=== PATIENT | female | born 1975 | race Caucasian/White ===

== ENCOUNTER 2017-08-13 11:06 | Observation (INO) | payer OTHER ==
[~2017-08-13] VITALS: Ht 160 cm; Wt 89.6 kg
[~2017-08-13 11:06] MED LIST: NAPROXEN500 MG PO; PERCOCET 325 MG1 TA2 PO
--- NOTE | 2017-08-13 11:11 | ED CARDIAC/CP/PALPITATIONS ---
History of Present Illness General Chief Complaint: Chest Pain Stated Complaint: CHEST PAIN Source: patient Exam Limitations: poor historian Vital Signs & Intake/Output Vital Signs & Intake/Output Vital Signs Date Time Temp Pulse Resp B/P B/P Pulse O2 O2 Flow FiO2 Mean Ox Delivery Rate 08/14 0800 Room Air 08/14 0711 98.3 66 20 118/78 96 Room Air 08/13 2220 98.4 69 20 124/82 97 Room Air 08/13 2045 98.4 69 20 124/82 97 Room Air 08/13 1943 84 16 120/77 100 Room Air 08/13 1813 97.9 65 20 124/73 96 08/13 1549 97.8 08/13 1353 78 18 128/74 99 Room Air 08/13 1208 62 18 169/101 99 Room Air 08/13 1115 66 18 159/105 99 Room Air ED Intake and Output 08/14 0000 08/13 1200 Intake Total 230 0 Output Total Balance 230 0 Intake, Oral 230 0 Patient 188 lb 188 lb Weight Weight Reported by Patient Measurement Method Allergies Coded Allergies: hydromorphone (From DILAUDID) (Mild, ITCHY RASH 08/13/17) Reconcile Medications Doxycycline Hyclate 20 MG TABLET 1 TAB PO BID ANTIBIOTIC, INFECTION (Reported ) Escitalopram Oxalate 20 MG TABLET 1 TAB PO DAILY MENTAL HEALTH (Reported) Triage Nurses Notes Reviewed? yes Onset: Gradual Duration: hour(s): (3) Timing: remote history Quality/Severity: moderate Location: DIFFUSE, MORE ON LEFT SIDE Radiation: jaw, shoulders Activities at Onset: none Modifying Factors: Improves With: rest. Nitro Today/Relief: 0.4 mg x 2, provided by EMS Aspirin Today: 81 mg x 4 Associated Symptoms: dizziness HPI: Patient is a 42-year-old female with history of anxiety and migraine headaches presenting to the emergency Department chief complaint of generalized malaise, weakness in the left upper and lower extremity, centralized chest pain, frontal headache that started approximately at 9 AM this morning was she was at work. She initially started with dizziness. Then the chest pain developed. Patient reports that the chest pain has been alleviated after receiving 2 nitroglycerin and 4 baby aspirin prior to arrival. Patient does report that she slightly dizzy at this time. No visual changes. She does report that she is diffusely weak but more weak on the left upper lower extremity. History of similar symptoms in the past and she was diagnosed with a cluster headache. Denies any recent illness. No recent upper respiratory congestion or cough. Denies fevers or chills. Denies any falls or trauma. Denies any urinary incontinence or retention. Patient does report intermittent shortness of breath at times, currently does not have any. She just reports intermittent palpitations that seem to be coming and going since onset of symptoms. (Charmaine Whitt) Past History Medical History Any Pertinent Medical History? see below for history Surgical History Surgical History: non-contributory Psychosocial History What is your primary language Mosotho Family History Hx Contributory? No (Charmaine Whitt) Review of Systems Review of Systems Constitutional: Reports: malaise, weakness. Comments Review of systems: See HPI, All other systems negative. Constitutional, no chills fever or weight loss HEENT: No visual changes no sore throat no congestion Cardiovascular: No chest pain ,palpitation , orthopnea or ankle swelling Skin, no jaundice no rashes Respiratory: No dyspnea cough sputum or hemoptysis GI: No nausea no vomiting : No dysuria No hematuria Muscle skeletal: no back pain, no neck pain, Neurologic: No numbness no confusion Psych: No INCREASED stress anxiety or depression,. Heme/endocrine: No bruising no bleeding no polyuria or polydipsia Immunology: No splenectomy or history of AIDS (Charmaine Whitt) Physical Exam Physical Exam General Appearance: APPEARS INTOXICATED Cardiovascular: regular rate/rhythm Comments: Well-developed well-nourished person in no acute distress HEENT: extraocular motion intact, no nystagmus. Pupils equally round and reactive to light and accommodation. pupils approximately 3-4 mm bilaterally. Ose is atraumatic. External auditory canal and Tympanic membranes clear. Pharynx normal. No swelling or edema. NO FACIAL DROOP. Neck: Supple, no lymphadenopathy, normal range of motion without pain or tenderness Back: NontendeR Cardiovascular: Regular rate and rhythms no murmurs rubs or gallops, normal JVP Respiratory: Chest nontender. No respiratory distress.breath sounds clear to auscultation bilaterally Abdomen: Soft, nontender nondistended, no appreciable organomegaly. Normal bowel sounds. No ascites, no rebound or guarding. Extremity: No edema, no calf tenderness to palpation, normal and equal pulses. Full range of motion of right upper and right lower extremities without difficulty or pain. Able to perform straight leg raise on the left side, and only to approximately 25. Left upper extremity able to hold straight out in front of her, slight left arm DRIFT on exam. Muscular strength is 4-5 and left upper and lower extremities. Right upper and lower extremities is 5 out of 5. Sales Order Specialist strength is equal bilaterally. Neuro: Alert oriented x3, motor sensory normal, cranial nerves II through XII grossly intact. Patellar reflexes are 2+ bilaterally. Skin: No appreciable rash on exposed skin, skin is warm and dry. Psych: Mood and affect is normal, memory and judgment is normal. Core Measures ACS in differential dx? Yes CVA/TIA Diagnosis No Sepsis Present: No Sepsis Focused Exam Completed? No (Avinash SOTO,Charmaine) Progress Differential Diagnosis: VIRAL SYNDROME, MIGRAINE, cva, tia, INFLUENZA, acs, PNEUMONIA, DEHYDRATION, ELECTROLYTE ABNORMALITY, CARDIAC ARRHYTHMIA, THYROID DYSFUNCTION, ALCOHOL INTOXICATION, DRUG INTOXICATION, DISSECTION Plan of Care: Orders Procedure Date/time Status MRI-HEAD W/O HUGO 08/14 UNK Active Heart Healthy Diet 08/13 D Active TROPONIN LEVEL 08/13 2200 Complete EKG 08/13 2200 Active NIH Stroke Scale 08/13 2024 Active Vital Signs 08/13 2021 Active Teach/Educate 08/13 2021 Active Pain Treatment and Response 08/13 2021 Active Nutritional Intake, Monitor 08/13 2021 Active Isolation 08/13 2021 Active Intake & Output 08/13 2021 Active Patient Care Conference 08/13 2021 Active Activity/Ambulation 08/13 2021 Active Pathway - chart 08/13 1710 Active House Staff 08/13 1710 Active Patient Data 08/13 1710 Active Code Status 08/13 1710 Active TROPONIN LEVEL 08/13 1700 Complete EKG 08/13 1700 Active Patient Data 08/[address] in observation 08/13 1648 Active Add-on Test (ER Only) 08/13 1648 Active Code Status 08/13 1608 Complete Add-on Test (ER Only) 08/13 1415 Active RAPID VIRAL INFLUENZA A 08/13 1343 Complete LIPID PANEL 08/13 1251 Complete Add-on Test (ER Only) 08/13 1154 Active URINE 08/13 1153 Complete URINE DRUG SCREEN FOR ER ONLY 08/13 1153 Complete Add-on Test (ER Only) 08/13 1141 Active Telemetry/Supervisor Braiding 08/13 1138 Active TSH REFLEX 08/13 1138 Complete TROPONIN LEVEL 08/13 1138 Complete PARTIAL THROMBOPLASTIN TIME 08/13 1138 Complete PROTHROMBIN TIME 08/13 1138 Complete ETHANOL 08/13 1138 Complete COMPREHENSIVE METABOLIC PANEL 08/13 1138 Complete CBC WITHOUT DIFFERENTIAL 08/13 1138 Complete Intake & Output 08/13 1126 Active EKG 08/13 1110 Active VTE Mechanical Prophylaxis 08/13 UNK Active Telemetry/Supervisor Braiding 08/13 UNK Complete NIH Stroke Scale 08/13 UNK Complete SOCIAL WORK CONSULT 08/13 UNK Active Current Medications Sig/Shivam Start time Last Medication Dose Stop Time Status Admin Aspirin 81 MG DAILY 08/14 1000 AC 08/14 (Aspirin) 0821 Escitalopram Oxalate 20 MG 0800 08/14 0845 AC 08/14 (Lexapro) 09 Melatonin 10 MG AT BEDTIME 08/13 2200 AC 08/13 (Melatonin) 2117 Acetaminophen 650 MG Q4P PRN 08/13 1845 AC 08/14 (Tylenol) 0821 Laboratory Tests 08/13/17 2200: Troponin I < 0.01 08/13/17 1652: Troponin I < 0.01 08/13/17 1251: Anion Gap 11, Estimated GFR > 60, BUN/Creatinine Ratio 20.0, Glucose 95, Calcium 9.7, Total Bilirubin 0.3, AST 21, ALT 26, Alkaline Phosphatase 57, Troponin I < 0.01, Total Protein 6.7, Albumin 4.2, Globulin 2.5, Albumin/Globulin Ratio 1.7, Triglycerides 179 H, Cholesterol 199, LDL Cholesterol, Calc 116, HDL Cholesterol 48, Cholesterol/HDL Ratio 4, TSH &T3 &Free T4 Intrp 1.160, PT 10.2, INR 0.97, APTT 30, CBC w Diff NO MAN DIFF REQ, RBC 3.97 L, MCV 94.8, MCH 32.6 H, MCHC 34.4, RDW 13.0, MPV 8.6, Gran % 74.6, Lymphocytes % 15.8 L, Monocytes % 8.2, Eosinophils % 1.1, Basophils % 0.3, Absolute Granulocytes 5.4, Absolute Lymphocytes 1.1 L, Absolute Monocytes 0.6, Absolute Eosinophils 0.1, Absolute Basophils 0, Serum Alcohol < 10.0 08/13/17 1210: Urine Opiates Screen < 100.00, Methadone Screen < 40, Barbiturate Screen < 60, Ur Phencyclidine Scrn < 6.00, Amphetamines Screen < 100, U Benzodiazepines Scrn < 85, Urine Cocaine Screen < 50, Urine Cannabis Screen < 5.00, Urine Test NEGATIVE Microbiology 08/13 1545 NASOPHARYN: Influenza Virus A & B Rapid Smear - COMP Diagnostic Imaging: Viewed by Me: Radiology Read, CT Scan. Discussed w/RAD: Radiology Read, CT Scan. Radiology Impression: PATIENT: KENTRELL STILL PRESENT AGE: 42 PATIENT ACCOUNT NO: [id number] : 74 LOCATION: ER ORDERING PHYSICIAN: Charmaine SOTO SERVICE DATE: 08/13/17 EXAM TYPE: CAT - CT HEAD WO IV CONTRAST EXAMINATION: CT HEAD WITHOUT CONTRAST CLINICAL INFORMATION: Sudden onset of left-sided weakness. COMPARISON: None TECHNIQUE: Contiguous axial imaging was performed from the skull base to vertex without intravenous administration of contrast. DLP: 615 mGy-cm FINDINGS: There is no evidence of acute intracranial hemorrhage or territorial infarction. No abnormal mass effect or midline shift is seen. Vang to white matter differentiation is well preserved. No extra-axial fluid collections are identified. The ventricles are normal in size. There is no abnormal attenuation within the brain parenchyma. The osseous structures and soft tissues are normal. The mastoid air cells and visualized portions of the paranasal sinuses are well aerated. IMPRESSION: No acute intracranial pathology. DICTATED BY: Sandra Escalante MD DATE/TIME DICTATED:08/13/171242 SEAT COVERS TRIMMER:CLARITZA DATE/TIME TRANSCRIBED:08/13/171242 CONFIDENTIAL, DO NOT COPY WITHOUT APPROPRIATE AUTHORIZATION. <Electronically signed in Other Vendor System> SIGNED BY: Sandra Escalante MD 08/13/171247 CXR Impression: PATIENT: KENTRELL STILL PRESENT AGE: 42 PATIENT ACCOUNT NO: [id number] : 74 LOCATION: ER ORDERING PHYSICIAN: Charmaine SOTO SERVICE DATE: 08/13/17 EXAM TYPE: RAD - XRY-PORTABLE CHEST XRAY EXAMINATION: XR PORTABLE CHEST CLINICAL INFORMATION: Chest pain. Rule out cardiomegaly. COMPARISON: CTA chest performed minutes earlier TECHNIQUE: Portable frontal view of the chest was obtained. FINDINGS: Lungs and pleural spaces remain clear. Normal pulmonary vascularity. Normal heart size. Regional skeleton intact. IMPRESSION: No acute pulmonary disease. Normal heart size. DICTATED BY: Haile Guy MD DATE/TIME DICTATED:08/13/171335 SEAT COVERS TRIMMER:CLARITZA DATE/TIME TRANSCRIBED:08/13/171335 CONFIDENTIAL, DO NOT COPY WITHOUT APPROPRIATE AUTHORIZATION. <Electronically signed in Other Vendor System> SIGNED BY: Haile Guy MD 08/13/17 1341 Initial ED EKG: NSR (58) Repeat EKG: unchanged Comments: PERC negative. NIH STROKE SCALE 1- slight drift with left arm Initial EKG is normal sinus. Patient is hypertensive on arrival to the emergency department but appears very anxious. She does have left-sided weakness on exam, besides left-sided weakness no cranial nerve deficits. No sensory deficits noted on exam. Patient will go for CT head, patient is perk negative, no need to order dimer. Family and patient denying any drug or alcohol use. We will assess with urine drug screen and every 2 hours levels. Blood work was drawn and sent including troponin levels. Patient did receive 2 nature L and 4 baby aspirin prior to arrival with relief and chest pain. 08/13/2017 4:14:12 PM patient reports that she is having a reoccurrence of the chest pain. Chest pain is now centralized, point tender to palpation. Does not want to take any more nitroglycerin as it caused a headache. Patient given IV Toradol. Due to persistent pain patient will be admitted for recurrent chest pain relieved with nitroglycerin, weakness area on exam her left-sided weakness has resolved, patient has full range of motion of extremities and upper and lower extremities. CT of the head was negative as well as first troponin, thyroid function testing and other labs. Patient will need MRI, further cardiology workup. Discussed with Dr. Harris who saw patient as well as agrees with plan. Also awaiting callback from neurology. Since patient's weakness symptoms have resolved and blood pressure has stabilized neurology not recommending any further treatment at this time. Recommending we obtain carotid Dopplers, lipid panel. They will perform a formal consult on patient. Also spoke with Dr. Thomas, covering pt skilled, who recommending holding off on any heparinization secondary to no changes with EKG and negative troponin. (Charmaine Whitt) Departure Departure Time of Disposition: 1609 Disposition: STILL A PATIENT Condition: Stable Clinical Impression Primary Impression: Chest pain Qualifiers: Chest pain type: unspecified Qualified Code: R07.9 - Chest pain, unspecified Secondary Impressions: Weakness Referrals: Vianey Zarco MD (PCP/Family) Departure Forms: Customer Survey General Discharge Information Observation Note Spoke With: Sonny CASAREZ,Lorne Physician Advisor Notified: MARTHA ULRICH DO Place Patient In: Non-ED OBS Care Area Rationale for Observation: My rational for observation is as follows .Patient requiring telemetry OBS admission for continued chest pain, chest pain relieved with nitroglycerin, requiring cardiology consultation, neurology consultation secondary to weakness, MRI to rule out CVA, discharge at this time is medically harmful as patient has recurrent symptoms of chest pain, weakness had resolved in the emergency department. No change with activity EKG. Cardiology recommending observation admission rule out ACS. Holding on any heparinization at this time. (Charmaine Whitt) PA/NEGATIVE DEVELOPER Co-Sign Statement Statement: ED Attending supervision documentation- [X] I saw and evaluated the patient. I have also reviewed all the pertinent lab results and diagnostic results. I agree with the findings and the plan of care as documented in the PA's/NEGATIVE DEVELOPER's documentation. [X] I have reviewed the ED Record and agree with the PA's/NEGATIVE DEVELOPER's documentation. [] Additions or exceptions (if any) to the PAs/NEGATIVE DEVELOPER's note and plan are summarized below: [] (Steven CASAREZ,Arabella) Critical Care Note Critical Care Note Critical Care Time: 30-74 min (Charmaine Whitt)
[2017-08-13] MEDS ORDERED: DOXYCYCLINE HYC20 M1 PO (11:54)
[2017-08-13] MEDS ORDERED: ESCITALOPRAM OX20 MG PO (11:54)
--- NOTE | 2017-08-13 12:48 | CT SCAN REPORT ---
EXAMINATION: CT HEAD WITHOUT CONTRAST CLINICAL INFORMATION: Sudden onset of left-sided weakness. COMPARISON: None TECHNIQUE: Contiguous axial imaging was performed from the skull base to vertex without intravenous administration of contrast. DLP: 615 mGy-cm FINDINGS: There is no evidence of acute intracranial hemorrhage or territorial infarction. No abnormal mass effect or midline shift is seen. Vang to white matter differentiation is well preserved. No extra-axial fluid collections are identified. The ventricles are normal in size. There is no abnormal attenuation within the brain parenchyma. The osseous structures and soft tissues are normal. The mastoid air cells and visualized portions of the paranasal sinuses are well aerated. IMPRESSION: No acute intracranial pathology.
[2017-08-13 13:12] LABS: ABSOLUTE BASOPHIL COUNT 0 /CUMM (0.0-0.2); ABSOLUTE EOSINOPHIL COUNT 0.1 /CUMM (0.0-0.7); ABSOLUTE GRANULOCYTE CT 5.4 /CUMM (1.4-6.5); ABSOLUTE LYMPH COUNT 1.1 /CUMM (1.2-3.4); ABSOLUTE MONOCYTE COUNT 0.6 /CUMM (0.10-0.60); BASOPHIL % 0.3 % (0.0-2.0); EOSINOPHIL % 1.1 % (0-5); GRANULOCYTE % 74.6 % (42.2-75.2); HEMATOCRIT 37.7 % (37-47); MEAN CORPUSCULAR HGB 32.6 PG (27.0-31.0); MEAN CORPUSCULAR HGB CONC 34.4 G/DL (33.0-37.0); MEAN CORPUSCULAR VOLUME 94.8 FL (81.0-99.0); MEAN PLATELET VOLUME 8.6 FL (7.4-10.4); PLATELET COUNT 223 /CUMM (130-400); RED BLOOD CELL CT 3.97 /CUMM (4.20-5.40); WHITE BLOOD CELL COUNT 7.2 /CUMM (4.8-10.8)
--- NOTE | 2017-08-13 13:16 | CT SCAN REPORT ---
STUDY PERFORMED: CTA OF THE CHEST ABDOMEN AND PELVIS CLINICAL INFORMATION: 42-year-old female patient with hypertension, chest pain, and confusion. DESCRIPTION: Initial axial scans were obtained of the chest without IV contrast. Following this, a routine CTA of the chest, abdomen, and pelvis was performed following the intravenous administration of 95 mL of Optiray 350 contrast. No contrast reaction reported Sagittal and coronal reformatted images were obtained on the technologist workstation. Post-processing on a dedicated 3-D workstation, 3-D reformatted images will be uploaded to PACS, and an addendum will be added to this report. Total exam dose-length product 1273 mGy-cm COMPARISON: None FINDINGS: Technical Laboratory Asst: No intestinal obstruction. Clear lungs. A cecal bascule filled with air is present. Vascular: 1. Aorta: The thoracic and abdominal aorta are normal in caliber without evidence of dissection or aneurysm. A ductus "bump" is present. 2. Mesenteric Arteries: The celiac axis, superior mesenteric artery and inferior mesenteric artery opacify normally with contrast. No evidence of significant stenosis, aneurysm, or dissection. 3. Renal Arteries: The single renal arteries are normal in caliber bilaterally without aneurysm or dissection. 4. Lower extremities: The common, external, and internal iliac arteries opacify normally with contrast. No evidence of aneurysm or dissection. The visualized common, superficial, and deep femoral arteries appear normal. Nonvascular: LUNGS: No focal consolidation, pleural effusion, or pneumothorax. Central airways are patent. MEDIASTINUM: The heart is normal in size. Residual thymic tissue is seen in the anterior mediastinum. No pericardial effusion. No mediastinal or hilar lymphadenopathy. Visualized thyroid appears normal. The esophagus is unremarkable. LIVER, GALLBLADDER, AND BILIARY TREE: The liver is normal in size, shape, and attenuation. Small liver cyst are present. No biliary ductal dilatation is present. The gallbladder is normal. PANCREAS: Normal; no mass or surrounding fluid. SPLEEN: Normal size. No focal lesion. ADRENAL GLANDS: Normal; no mass. KIDNEYS AND URETERS: The kidneys are normal in size, shape, and attenuation. No hydronephrosis, hydroureter, or calculi. GASTROINTESTINAL TRACT: No abnormally dilated loops of bowel. No bowel wall thickening or pericolonic stranding. The appendix is not definitively visualized but there is no evidence of pericecal inflammatory changes to suggest acute appendicitis. ABDOMINAL WALL: No hernia seen. LYMPHATIC STRUCTURES: No lymphadenopathy. BLADDER: The urinary bladder is distended without wall thickening or bladder calculi. PELVIC VISCERA: Unremarkable. OSSEOUS STRUCTURES/SOFT TISSUES: No acute or suspicious osseous abnormality. Soft tissues are unremarkable. IMPRESSION: 1. No indication of aortic dissection or aneurysm. 2. Cecal bascule. 3. Small liver cysts.
[2017-08-13 13:19] LABS: PT 10.2 SEC (9.4-12.5); PTT 30 SEC (25-37)
--- NOTE | 2017-08-13 13:41 | RADIOLOGY REPORT ---
EXAMINATION: XR PORTABLE CHEST CLINICAL INFORMATION: Chest pain. Rule out cardiomegaly. COMPARISON: CTA chest performed minutes earlier TECHNIQUE: Portable frontal view of the chest was obtained. FINDINGS: Lungs and pleural spaces remain clear. Normal pulmonary vascularity. Normal heart size. Regional skeleton intact. IMPRESSION: No acute pulmonary disease. Normal heart size.
--- NOTE | 2017-08-13 17:04 | History & Physical ---
Juancarlos CASAREZ,Ghazal 08/13/17 1704: General Information and HPI MD Statement: I have seen and personally examined KENTRELL STILL and documented this H&P. The patient is a 42 year old F who presented with a patient stated chief complaint of [chest pain]. Source of Information: patient, old records Exam Limitations: no limitations History of Present Illness: 42 years old female with past medical history of anxiety, migraine presents to the ED complaining of generalized weakness and dizziness which started this morning when the patient was at work. Patient reports that her pain started with pain in her right ear which was associated with ringing and difficulty hearing after which the patient noticed that she feels dizzy and was trying to hold to the wall not to fall, the patient also noticed having chest tightness and that she cannot catch her breath it was associated with tingling and numbness in her left arm. The patient reports that she cannot recall coming to the hospital. She has history of migraine 34 times per months the last time she had migraine was last Friday, she takes Excedrin which helped to control her pain. She also complains of insomnia for which she takes melatonin. However the patient denies any similar episodes in the past except for one episode which happened 3 years ago when she had severe headache and dizziness. Patient also reports feeling foggy and anxious but she denies any recent major stresses in her life. Patient denies any nausea, vomiting, diarrhea, constipation, abdominal pain. She also denies any recent sick contacts. Patient lives home with her boyfriend and son and is independent in her activities She smokes half a pack cigarettes daily, denies alcohol or recreational drug use ED course: Vital signs: Blood pressure 159/105, pulse 66, respiratory rate 18, pulse ox 99 on room air Labs on admission: C BC and BEP was within normal limits Chest x-ray and head CT were normal Abdominal CT showed only small liver cyst Allergies/Medications Allergies: Coded Allergies: hydromorphone (From DILAUDID) (Mild, ITCHY RASH 08/13/17) Home Med list Doxycycline Hyclate 20 MG TABLET 1 TAB PO BID ANTIBIOTIC, INFECTION (Reported ) Escitalopram Oxalate 20 MG TABLET 1 TAB PO DAILY MENTAL HEALTH (Reported) Past History Travel History Traveled to [place] past 21 day No Medical History Neurological: NONE EENT: NONE Cardiovascular: NONE Respiratory: NONE Gastrointestinal: NONE Hepatic: NONE Renal: NONE Musculoskeletal: NONE Psychiatric: NONE Endocrine: NONE Surgical History Surgical History: non-contributory Past Family/Social History Family History Relations & Conditions if any MOTHER Relation not specified for: FHx: hypertension Psychosocial History Smoking Status: Current Some Day Smoker ETOH Use: denies use Review of Systems Review of Systems Constitutional: Reports: malaise, weakness. Cardiovascular: Reports: chest pain. Respiratory: Reports: short of breath. Denies: cough, hemoptysis, orthopnea, stridor. GI: Denies: no symptoms. Genitourinary: Denies: no symptoms. Musculoskeletal: Denies: no symptoms. Skin: Denies: no symptoms. Exam & Diagnostic Data Last 24 Hrs of Vital Signs/I&O Vital Signs Date Time Temp Pulse Resp B/P B/P Pulse O2 O2 Flow FiO2 Mean Ox Delivery Rate 08/13 1943 84 16 120/77 100 Room Air 08/13 1813 97.9 65 20 124/73 96 08/13 1549 97.8 08/13 1353 78 18 128/74 99 Room Air 08/13 1208 62 18 169/101 99 Room Air 08/13 1115 66 18 159/105 99 Room Air Intake & Output 08/13 1600 08/13 0800 08/13 0000 Intake Total 0 Output Total Balance 0 Intake, Oral 0 Patient 188 lb Weight Weight Reported by Patient Measurement Method Physical Exam General Appearance Alert, Oriented X3, Cooperative, No Acute Distress HEENT Atraumatic, PERRLA, EOMI, Mucous Membr. moist/pink Cardiovascular Normal S1, Normal S2, No Murmurs Lungs Clear to Auscultation, Normal Air Movement Abdomen Normal Bowel Sounds, Soft, No Tenderness Extremities No Clubbing, No Cyanosis, No Edema Vascular Normal Pulses Assessment/Plan Assessment: 42 years old female with past medical history of anxiety, migraine presents to the ED complaining of generalized weakness and dizziness which started this morning when the patient was at work. Patient reports that her pain started with pain in her right ear which was associated with ringing and difficulty hearing after which the patient noticed that she feels dizzy and was trying to hold to the wall not to fall, the patient also noticed having chest tightness and that she cannot catch her breath it was associated with tingling and numbness in her left arm. ED course: Vital signs: Blood pressure 159/105, pulse 66, respiratory rate 18, pulse ox 99 on room air Labs on admission: C BC and BEP was within normal limits Chest x-ray and head CT were normal Abdominal CT showed only small liver cyst Problem list: Migraine Diziness Chest pain Anxiety Weakness Plan Observe on telemetry Serial troponin and EKG to rule out ACS MRI brain to rule out organic brain disease Cardiology consult appreciated Consult appreciated Neuro check every 2 Fall precaution Zofran when necessary for nausea PT evaluation Social work consult Hold off his antihypertensive meds for now and Close monitoring of vital signs Tylenol 650 mg when necessary for pain Full code DVT prophylaxis with heparin/Alps Heart healthy diet As Ranked By This Provider Problem List: 1. Weakness 2. Chest pain Qualifiers Chest pain type: unspecified Qualified Code: R07.9 - Chest pain, unspecified Core Measures/Misc (03/02) Acute Coronary Syndrome ACS Diagnosis: No Congestive Heart Failure Congestive Heart Failure Diagnosis No Cerebrovascular Accident CVA/TIA Diagnosis: No VTE (View Protocol) VTE Risk Factors Age>40 No Mechanical VTE Prophylaxis d/t N/A MechProphylax Ordered No VTE Pharm Prophylaxis d/t NA PharmProphylax ordered Sepsis (View protocol) Sepsis Present: No Wenceslao Hutton MD 08/13/17 1950: Resident Review Statement Resident Statement: examined this patient, discussed with chief of internal medicine, agreed with chief of internal medicine Other Findings: Patient is 41-year-old female presented with chief complaints of sudden onset of dizziness followed by chest pain. She was BIBA for further evaluation of chest pain. History is taken from the patient and the mother.She was oriented to time place and person.She was primarily complaining for the generalized body ache. According to her in the morning she went to work around 7:00 and from 7-9 she was completely all right. Later she went out of office to talk to her sister who work at the same place. During talk, she felt sudden onset of pain in his right ear and the cheek. She went to office and after some time she felt sudden onset of dizziness,followed by severe, chest pain which was pressure in nature 10 out of 10, associated with feeling difficulty in catching her breath.She sat down over the chair and after that she does not know what happened.The history was supported by the mom, according to her she was given aspirin and called 911 brought her here. On the way she was given 2 tablets of sublingual nitroglycerin which was followed by complete relief of chest pain. But she started having severe headache afterwards. According to the patient she was still having generalized malaise and body ache, she feels foggy but denies for any blurring of vision.According to her she had history of headache in the past around 2 years ago and needed a spinal tap but that was different from this headache. She denies further any weakness in any part of the body, nausea, vomiting, fever , chills, tongue bite, incontinence of the stools and urine, fall. Past medical history Migraine Anxiety ED course -vital signs -temperature 97.8, pulse 66, respiratory rate 18, blood pressure 159/105, SPO2 99% on room air. On examination -patient was conscious cooperative, alert 3. She looked like in stress. At that time she was acting abnormally in terms of behavior. Her pupils were dilated 4-5 mm but reacting to light. ? Left lateral nystagmus.Extraocular movements were normal no neck stiffness, no signs of meningeal irritation, power 5/5 all extremities, Romberg sign negative, chest bilateral clear, heart S1-S2 normal, extremities all pulses palpable, abdomen soft nontender bowel sounds positive. blood workup showed WBC 7.2, hemoglobin 13.0, hematocrit 37.7, MCV 94.8, platelet count 223, serum sodium 140, potassium 3.9, chloride 103, anion gap 11, BUN 12, creatinine 0.6, glucose 95, calcium 9.7, total bilirubin 0.3, AST 21, ALT 26, alkaline phosphatase 57, troponin II 0.01, albumin 4.2, PT/INR 10.2/ 0.97, APTT 30, urine test was negative, U tox was negative, Chest x-ray -no acute cardiopulmonary abnormality CT scan of the head-no acute intracranial abnormality Chest CTA/CT scan of the abdomen and pelvis -No evidence of aortic dissection/ aneurysm,Small liver cyst are present. Carotid Doppler -No evidence of carotid artery stenosis. Assessment and plan -patient was complaining of sudden onset of dizziness followed by seated chest pain which happened after she was having a discussion with her sister. She was given 4 tablets of aspirin followed by nitroglycerin with complete relief of chest pain. On examination she does not have any neurologic deficit except dilated pupil. Her U tox was negative for any evidence of cocaine. EKG does not show any acute ST-T wave changes. The neurological workup for stroke including CT scan of the head, carotid Doppler, CT chest for aneurysm is negative. On talking to the patient it seems that she was not a lot of anxiety and the stress. Still we need to rule out coronary artery disease. We will observe the patient to telemetry floor and will do serial troponins and EKG. Her lipid profile is normal. Will obtain cardiology consult. We will obtain urologic consult for evaluation of stroke and also to adjust the medication for the migraine headaches. We will obtain a social work consult to discuss about any stress factor at home unknow her situation at home. Episode of dizziness followed by chest pain -differential can be stroke/coronary artery disease/panic attack - * We will observe the patient to telemetry floor * we will do serial troponins and EKG * Will obtain cardiology consult * We will obtain neurologic consult * Neuro check every 2 hourly * Injection Promethazine/Zofran as needed for nausea * Take all fall precautions * Social work consult to rule out stress factor Hypertension -probably secondary to stress/anxiety * We will watch patient off medication * If patient will have persistently high blood pressure then give antihypertensive medicine Migraine headaches * Tylenol 650 mg as needed * We will obtain neurologic consult to reconsider his medicines for headache. Diet -heart healthy diet DVT prophylaxis -JUAN CARLOS/heparin CODE STATUS -full code Observation Initial Note - I have personally examined KENTRELL STILL on 08/13/17 at 1951. The disposition of KENTRELL STILL is uncertain at this time and before a determination can be made, she requires a period of observation for the following reasons [chest pain]
--- NOTE | 2017-08-13 17:43 | PN- Att Addend ---
Attending Addendum Attending Brief Note Patient seen and examined. Plan of care discussed with the medical team and the patient. Available lab work and radiology test reports were reviewed. Patient is a 42-year-old female with history of anxiety and migraine headaches presenting with shoulder and the chest pain with feeling funny. Patient also felt weak but denies any recent fever chills. 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 She also felt warm. Patient did feel some numbness the left hand and left shoulder which has slowly subsided. Patient has prior history of migraine and one point she was seen in ED another hospital for similar numbness in the left hand and headache however this time patient did not have any headache. Exam: General: Patient awake alert oriented without any distress; patient is slightly hard of hearing; she appears somewhat dazed CVS: S1 plus S2 without any murmur or gallops Chest: Few scattered crepitation without any wheeze. There is no respiratory distress. Abdomen: Soft non-tender, bowel sound present, no guarding or rebound [employer]: Awake alert oriented without any focal neuro deficit and follows commands appropriately Extremities: No edema; no clubbing or cyanosis noted Laboratory Tests 08/13/17 1652: Troponin I Pending 08/13/17 1251: Anion Gap 11, Estimated GFR > 60, BUN/Creatinine Ratio 20.0, Glucose 95, Calcium 9.7, Total Bilirubin 0.3, AST 21, ALT 26, Alkaline Phosphatase 57, Troponin I < 0.01, Total Protein 6.7, Albumin 4.2, Globulin 2.5, Albumin/Globulin Ratio 1.7, Triglycerides 179 H, Cholesterol 199, LDL Cholesterol, Calc 116, HDL Cholesterol 48, Cholesterol/HDL Ratio 4, TSH &T3 &Free T4 Intrp 1.160, PT 10.2, INR 0.97, APTT 30, CBC w Diff NO MAN DIFF REQ, RBC 3.97 L, MCV 94.8, MCH 32.6 H, MCHC 34.4, RDW 13.0, MPV 8.6, Gran % 74.6, Lymphocytes % 15.8 L, Monocytes % 8.2, Eosinophils % 1.1, Basophils % 0.3, Absolute Granulocytes 5.4, Absolute Lymphocytes 1.1 L, Absolute Monocytes 0.6, Absolute Eosinophils 0.1, Absolute Basophils 0, Serum Alcohol < 10.0 08/13/17 1210: Urine Opiates Screen < 100.00, Methadone Screen < 40, Barbiturate Screen < 60, Ur Phencyclidine Scrn < 6.00, Amphetamines Screen < 100, U Benzodiazepines Scrn < 85, Urine Cocaine Screen < 50, Urine Cannabis Screen < 5.00, Urine Test NEGATIVE Microbiology 08/13 1545 NASOPHARYN: Influenza Virus A & B Rapid Smear - COMP Vital Signs Date Time Temp Pulse Resp B/P B/P Pulse O2 O2 Flow FiO2 Mean Ox Delivery Rate 08/13 1549 97.8 08/13 1353 78 18 128/74 99 Room Air 08/13 1208 62 18 169/101 99 Room Air 08/13 1115 66 18 159/[address] chest abdomen pelvis 1. No indication of aortic dissection or aneurysm. 2. Cecal bascule. 3. Small liver cysts. CT head did not show any acute intracranial pathology Chest x-ray without any pulmonary disease Assessment * Hypertensive urgency * Rule out TIA * Rule out ME given chest pain- note that her EKG appears normal Plan * Observe in telemetry * Neuro checks * cardiology consult * Neurology consult * Obtain MRI * Start low-dose lisinopril pressure remains elevated * Start aspirin 81 mg daily * Check lipid profile * Low-salt diet
--- NOTE | 2017-08-13 19:50 | ULTRASOUND REPORT ---
EXAMINATION: US DUPLEX CAROTID AND VERTEBRAL CLINICAL INFORMATION: Numbness entire left side. Evaluate for carotid obstruction. COMPARISON: None TECHNIQUE: Real-time ultrasound and Doppler techniques (integrating B-mode 2D vascular images, Doppler spectral analysis and color flow Doppler imaging) were utilized to interrogate the extracranial carotid and vertebral arteries bilaterally. The degree of stenosis determined by criteria similar to NASCET. FINDINGS: There is normal antegrade flow seen in both carotid and vertebral arteries. No atherosclerotic soft or hard plaque seen in either carotid artery. On the right peak systolic/end diastolic velocity distal CCA measures 100/29 cm/second. Peak systolic/end diastolic velocity proximal ICA measures 63/19 cm/second. There is no significant stenosis. On the left peak systolic/end-diastolic velocity distal CCA measures 91/30 cm/end. Peak systolic/end diastolic velocity left proximal ICA measures 11 6/47 cm/second. There is no significant stenosis. IMPRESSION: No hemodynamically significant stenosis in either carotid artery . Normal antegrade flow seen in both vertebral arteries.
[2017-08-13 20:45] VITALS: BP 124/82
[2017-08-13 22:20] VITALS: BP 124/82
--- NOTE | 2017-08-14 07:08 | PN-Observation ---
Juancarlos CASAREZ,Ghazal 08/14/17 0708: Observation Note Observation Note _ I have personally examined KENTRELL STILL. her disposition is uncertain at this time. Before a determination can be made, she requires continued observation for the following reasons [CHEST PAIN]. Assessment/Plan Medical Assessment: 42 years old female with past medical history of anxiety, migraine presents to the ED complaining of generalized weakness and dizziness which started this morning when the patient was at work. Patient reports that her pain started with pain in her right ear which was associated with ringing and difficulty hearing after which the patient noticed that she feels dizzy and was trying to hold to the wall not to fall, the patient also noticed having chest tightness and that she cannot catch her breath it was associated with tingling and numbness in her left arm. ED course: Vital signs: Blood pressure 159/105, pulse 66, respiratory rate 18, pulse ox 99 on room air Labs on admission: C BC and BEP was within normal limits Chest x-ray and head CT were normal Abdominal CT showed only small liver cyst Problem list: Migraine Diziness Chest pain Anxiety Weakness Plan Observe on telemetry MRI brain to rule out organic brain disease Neuro check every 2 Fall precaution Zofran when necessary for nausea PT evaluation Social work consult Start Inderal 10 mg twice a day for both headache and hypertension Start Atorvastatin 10 mg daily Close monitoring of vital signs exedrin PRN for migraine Tylenol 650 mg when necessary for pain Was cleared from cardiology standpoint to be discharged for outpatient stress test and echo Was seen by psychiatry and was offered outpatient follow-up for anxiety but she refused Full code DVT prophylaxis with heparin/Alps Heart healthy diet Problem List: 1. Weakness 2. Chest pain Qualifiers Chest pain type: unspecified Qualified Code: R07.9 - Chest pain, unspecified Subjective Follow-up For: Migraine Diziness Chest pain Anxiety Weakness Subjective: Patient is seen and examined at bedside, she complains of mild migraine headache /was given Excedrin and improved, she denies any weakness, chest tightness, shortness of breath, fever, or any other symptoms Review of Systems Constitutional: Reports: see HPI. Objective Last 24 Hrs of Vital Signs/I&O Vital Signs Date Time Temp Pulse Resp B/P B/P Pulse O2 O2 Flow FiO2 Mean Ox Delivery Rate 08/14 0800 Room Air 08/14 0711 98.3 66 20 118/78 96 Room Air 08/13 2220 98.4 69 20 124/82 97 Room Air 08/13 2045 98.4 69 20 124/82 97 Room Air 08/13 1943 84 16 120/77 100 Room Air 08/13 1813 97.9 65 20 124/73 96 08/13 1549 97.8 08/13 1353 78 18 128/74 99 Room Air Intake & Output 08/14 1600 08/14 0800 08/14 0000 Intake Total 200 230 Output Total Balance 200 230 Intake, Oral 200 230 Patient 188 lb Weight Physical Exam General Appearance: Alert, Oriented X3, Cooperative, No Acute Distress HEENT: Atraumatic, PERRLA, EOMI, Mucous Membr. moist/pink Neck: Supple, No JVD Cardiovascular: Normal S1, Normal S2, No Murmurs Lungs: Clear to Auscultation Abdomen: Normal Bowel Sounds, Soft, No Tenderness Neurological: Normal Gait, Normal Speech, Strength at 5/5 X4 Ext, Normal Tone, Sensation Intact Extremities: No Clubbing, No Cyanosis, No Edema Vascular: Normal Pulses Tyree Warner MD 08/14/17 1606: Attending MD Review Statement Attending Statement Attending MD Statement: examined this patient, discuss w/resident/PA/EGGS INSPECTOR, agreed w/resident/PA/EGGS INSPECTOR, discussed with family, reviewed EMR data (avail), discussed w/ nursing, discussed w/case mgmt, reviewed images, amended to note Attending Assessment/Plan: The patient was seen and discussed with house staff and Neurology (Dr. Bangura). Agree with plan of care as outlined. Symptoms have resolved- headache better after Excedrin. Awaiting MRI of brain (machine down). Spoke with Dr. Bangura and she would prefer to keep in hospital to obtain test (due to level of HTN noted and her other risk factors).
[2017-08-14 07:11] VITALS: BP 118/78
--- NOTE | 2017-08-14 08:04 | Cons- Cardiology ---
General Information and HPI Consulting Request Date of Consult: 08/14/17 Requested By: Tyree Warner MD Reason for Consult: chest pain Source of Information: patient, old records Exam Limitations: no limitations History of Present Illness: 42 years old female with past medical history of anxiety, migraine presents to the ED complaining of generalized weakness and dizziness which started this morning when the patient was at work. Patient reports that her pain started with pain in her right ear which was associated with ringing and difficulty hearing after which the patient noticed that she feels dizzy and was trying to hold to the wall not to fall, the patient also noticed having chest tightness and that she cannot catch her breath it was associated with tingling and numbness in her left arm. The patient reports that she cannot recall coming to the hospital. She has history of migraine 34 times per months the last time she had migraine was last Friday, she takes Excedrin which helped to control her pain. She also complains of insomnia for which she takes melatonin. However the patient denies any similar episodes in the past except for one episode which happened 3 years ago when she had severe headache and dizziness. Patient also reports feeling foggy and anxious but she denies any recent major stresses in her life. Patient denies any nausea, vomiting, diarrhea, constipation, abdominal pain. She also denies any recent sick contacts. Patient lives home with her boyfriend and son and is independent in her activities She smokes half a pack cigarettes daily, denies alcohol or recreational drug use The above information was obtained by the admitting resident. While at work she became dizzy had some headache came. Pressure on the chest that this headache and dizziness and date blood pressure was taken at work was found to be elevated and she was sent to the emergency room for evaluation. She denies any previous history of chest pains or unusual shortness of breath. 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 She is a smoker but denied any diabetes hypertension and her father had coronary artery intervention and stents in his 50s. He was a heavy smoker. Allergies/Medications Allergies: Coded Allergies: hydromorphone (From DILAUDID) (Mild, ITCHY RASH 08/13/17) Home Med List: Doxycycline Hyclate 20 MG TABLET 1 TAB PO BID ANTIBIOTIC, INFECTION (Reported ) Escitalopram Oxalate 20 MG TABLET 1 TAB PO DAILY MENTAL HEALTH (Reported) Current Medications: Current Medications Sig/Shivam Start time Last Medication Dose Route Stop Time Status Admin Acetaminophen 650 MG Q4P PRN 08/13 1845 AC PO Aspirin 81 MG DAILY 08/14 1000 AC PO Ketorolac 30 MG ONCE ONE 08/13 1545 DC 08/13 Tromethamine IV 08/13 1546 1546 Ketorolac 0 .STK-MED ONE 08/13 1545 DC Tromethamine .ROUTE Meclizine HCl 0 .STK-MED ONE 08/13 1435 DC PO Meclizine HCl 25 MG ONCE ONE 08/13 1415 DC 08/13 PO 08/13 1416 1433 Melatonin 10 MG AT BEDTIME 08/13 2200 AC 08/13 PO 2117 Promethazine HCl 12.5 MG ONCE ONE 08/13 2030 DC IV 08/13 2030 Review of Systems Review of Systems Constitutional: Reports: see HPI. EENTM: Reports: see HPI. Cardiovascular: Reports: see HPI. Respiratory: Reports: see HPI. GI: Denies: no symptoms. Genitourinary: Denies: no symptoms. Musculoskeletal: Denies: no symptoms. Skin: Denies: no symptoms. Neurological/Psychological: Denies: no symptoms. Hematologic/Endocrine: Denies: no symptoms. Immunologic/Allergic: Denies: no symptoms. 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 Surgical History Surgical History: non-contributory Family History Relations & Conditions If Any: MOTHER Relation not specified for: FHx: hypertension Psychosocial History Smoking Status: Current Some Day Smoker ETOH Use: denies use Exam & Diagnostic Data Vital Signs and I&O Vital Signs Date Time Temp Pulse Resp B/P B/P Pulse O2 O2 Flow FiO2 Mean Ox Delivery Rate 08/14 0711 98.3 66 20 118/78 96 Room Air 08/13 2219 98.4 69 20 124/82 97 Room Air 08/13 2044 98.4 69 20 124/82 97 Room Air 08/13 1943 84 16 120/77 100 Room Air 08/13 1813 97.9 65 20 124/73 96 08/13 1549 97.8 08/13 1353 78 18 128/74 99 Room Air 08/13 1208 62 18 169/101 99 Room Air 08/13 1115 66 18 159/105 99 Room Air Intake & Output 08/14 0808/14 1600 08/13 0808/13 1600 Intake Total 200 230 0 Output Total Balance 200 230 0 Intake, Oral 200 230 0 Patient 188 lb 188 lb Weight Weight Reported by Patient Measurement Method Physical Exam: On general exam she appeared comfortable Head normocephalic atraumatic Eyes sclera anicteric conjunctiva showed no pallor extraocular muscles were normal Neck no jugular venous distention no thyroid masses no palpable nodes no carotid bruits Chest lungs were clear bilaterally Heart regular rhythm S2 was physiologically split no murmurs to sign abdomen soft no organomegaly bowel sounds normal Extremities no clubbing cyanosis or edema Neurological no gross motor or sensory deficits Labs/Jareth Results: Laboratory Tests 08/13 08/13 08/13 2200 1652 1251 Chemistry Sodium (137 - 145 mmol/L) 140 Potassium (3.5 - 5.1 mmol/L) 3.9 Chloride (98 - 107 mmol/L) 103 Carbon Dioxide (22 - 30 mmol/L) 25 Anion Gap (5 - 16) 11 BUN (7 - 17 mg/dL) 12 Creatinine (0.5 - 1.0 mg/dL) 0.6 Estimated GFR (>60 ml/min) > 60 BUN/Creatinine Ratio (7 - 25 %) 20.0 Glucose (65 - 99 mg/dL) 95 Calcium (8.4 - 10.2 mg/dL) 9.7 Total Bilirubin (0.2 - 1.3 mg/dL) 0.3 AST (14 - 36 U/L) 21 ALT (9 - 52 U/L) 26 Alkaline Phosphatase (<127 U/L) 57 Troponin I (< 0.11 ng/ml) < 0.01 < 0.01 < 0.01 Total Protein (6.3 - 8.2 g/dL) 6.7 Albumin (3.5 - 5.0 g/dL) 4.2 Globulin (1.9 - 4.2 gm/dL) 2.5 Albumin/Globulin Ratio (1.1 - 2.2 %) 1.7 Triglycerides (<150 mg/dL) 179 H Cholesterol (<200 MG/DL) 199 LDL Cholesterol, Calc (65 - 129 mg/dL) 116 HDL Cholesterol (40 - 60 mg/dL) 48 Cholesterol/HDL Ratio (0.00 - 4.23 %) 4 TSH &T3 &Free T4 Intrp (0.270 - 4.20 uIU/mL) 1.160 Coagulation PT (9.4 - 12.5 SEC) 10.2 INR (0.90 - 1.19) 0.97 APTT (25 - 37 SEC) 30 Hematology CBC w Diff NO MAN DIFF REQ WBC (4.8 - 10.8 /CUMM) 7.2 RBC (4.20 - 5.40 /CUMM) 3.97 L Hgb (12.0 - 16.0 G/DL) 13.0 Hct (37 - 47 %) 37.7 MCV (81.0 - 99.0 FL) 94.8 MCH (27.0 - 31.0 PG) 32.6 H MCHC (33.0 - 37.0 G/DL) 34.4 RDW (11.5 - 14.5 %) 13.0 Plt Count (130 - 400 /CUMM) 223 MPV (7.4 - 10.4 FL) 8.6 Gran % (42.2 - 75.2 %) 74.6 Lymphocytes % (20.5 - 51.1 %) 15.8 L Monocytes % (1.7 - 9.3 %) 8.2 Eosinophils % (0 - 5 %) 1.1 Basophils % (0.0 - 2.0 %) 0.3 Absolute Granulocytes (1.4 - 6.5 /CUMM) 5.4 Absolute Lymphocytes (1.2 - 3.4 /CUMM) 1.1 L Absolute Monocytes (0.10 - 0.60 /CUMM) 0.6 Absolute Eosinophils (0.0 - 0.7 /CUMM) 0.1 Absolute Basophils (0.0 - 0.2 /CUMM) 0 Toxicology Serum Alcohol (<10 MG/DL) < 10.0 08/13 1210 Toxicology Urine Opiates Screen (>2000 NG/ML) < 100.00 Methadone Screen (>300 NG/ML) < 40 Barbiturate Screen (>200 NG/ML) < 60 Ur Phencyclidine Scrn (>25 NG/ML) < 6.00 Amphetamines Screen (>1000 NG/ML) < 100 U Benzodiazepines Scrn (>200 NG/ML) < 85 Urine Cocaine Screen (>300 NG/ML) < 50 Urine Cannabis Screen (>50 NG/ML) < 5.00 Urines Urine Test NEGATIVE Diagnostic Data EKG Results Sinus rhythm within normal limits CXR Results No acute pulmonary disease. Normal heart size. Other Results CT of the abdomen 1. No indication of aortic dissection or aneurysm. 2. Cecal bascule. 3. Small liver cysts. Carotid Dopplero hemodynamically significant stenosis in either carotid artery . Normal antegrade flow seen in both vertebral arteries. Head CT no acute intracranial pathology Assessment/Plan Assessment/Plan In summary this 42-year-old female who smokes cigarettes was admitted with atypical constellation of discomfort including headache dizziness chest discomfort. Serial electrocardiograms are normal. Troponins are negative. Extensive workup included carotid ultrasound, CT of the chest and abdomen, CT of the head. Which were all normal. There is no clinical or objective evidence to indicate a cardiac issue in this lady. She can be discharged outpatient workup including stress test and echocardiogram. Thank you for me the opportunity of participating in her care Consult Acknowledgment - Thank you for your consult request.
--- NOTE | 2017-08-14 09:23 | Cons- Neurology ---
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 She recalls that when they tried to stand her up her left side was weak. She has vague recollection of being brought to the emergency room. I was called by the ED regarding mild left-sided weakness. Chest pain was relieved with nitroglycerin. Blood pressure at [facility] was reportedly over 200 systolic. She does not recall when left-sided weakness/numbness resolved, but her mother states that she was able to feed herself dinner last night without difficulty, and today she has been able to ambulate without difficulty. She denies any numbness or paresthesias, aside from long-standing patch of numbness just lateral to the left lower lip which she attributes to a nerve injury which occurred during a dental procedure. She reports that she currently has a dull frontal headache. History of migraine headaches for which she has no regular follow-up with a neurologist, reporting headaches are typically frontal in location, throbbing in quality, associated with photophobia, sonophobia, nausea, occasional vomiting, usually relieved with Excedrin if she medicates early. Has missed work due to her migraines. Has never been on headache prophylactic medications. In 2013 she was seen in the [facility] regarding migrainous headache and left body numbness and head CT was reported to show an incidental Chiari malformation but was otherwise unremarkable. [facility] pressure [facility] was in the 140s over 100. She states she is followed by Vianey Zarco MD as her primary care physician and has never been formally diagnosed with hypertension. Allergies/Medications Allergies: Coded Allergies: hydromorphone (From DILAUDID) (Mild, ITCHY RASH 08/13/17) Home Med List: Doxycycline Hyclate 20 MG TABLET 1 TAB PO BID ANTIBIOTIC, INFECTION (Reported ) Escitalopram Oxalate 20 MG TABLET 1 TAB PO DAILY MENTAL HEALTH (Reported) Current Medications: Current Medications Sig/Shivam Start time Last Medication Dose Route Stop Time Status Admin Acetaminophen 650 MG Q4P PRN 08/13 1845 AC 08/14 PO 0821 Aspirin 81 MG DAILY 08/14 1000 AC 08/14 PO 0821 Escitalopram Oxalate 20 MG 0800 08/14 0845 AC PO Ketorolac 30 MG ONCE ONE 08/13 1545 DC 08/13 Tromethamine IV 08/13 1546 1546 Ketorolac 0 .STK-MED ONE 08/13 1545 DC Tromethamine .ROUTE Meclizine HCl 0 .STK-MED ONE 08/13 1435 DC PO Meclizine HCl 25 MG ONCE ONE 08/13 1415 DC 08/13 PO 08/13 1416 1433 Melatonin 10 MG AT BEDTIME 08/13 220 AC 08/13 PO 2116 Promethazine HCl 12.5 MG ONCE ONE 08/13 2030 DC IV 08/13 2030 Review of Systems Review of Systems: REVIEW OF SYSTEMS: (-) = negative / normal blank = not discussed Neurologic: see HPI Eyes: (-) ENT: (-) Constitutional: (-) CV: (-) Respiratory: (-) /Renal: (-) Musculoskeletal: (-) Skin: Takes doxycycline for acne Psychiatric: Takes Lexapro for anxiety Heme: (-) GI: (-) Allergy/Immune: (-) Endocrine: (-) Other: (-) Past History Travel History Traveled to [place] past 21 day No Medical History Blood Transfusion Hx: No Neurological: NONE EENT: NONE Cardiovascular: NONE Respiratory: NONE Gastrointestinal: NONE Hepatic: NONE Renal: NONE Musculoskeletal: NONE Psychiatric: anxiety Endocrine: NONE Blood Disorders: NONE Cancer(s): NONE 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 Home Services at Home: None Smoking Status: Current Some Day Smoker ETOH Use: denies use Exam & Diagnostic Data Vital Signs and I&O Vital Signs Date Time Temp Pulse Resp B/P B/P Pulse O2 O2 Flow FiO2 Mean Ox Delivery Rate 08/14 08 Room Air 08/14 07 98.3 66 20 118/78 96 Room Air 08/13 2219 98.4 69 20 124/82 97 Room Air 08/13 2044 98.4 69 20 124/82 97 Room Air 08/13 1943 84 16 120/77 100 Room Air 08/13 1813 97.9 65 20 124/73 96 08/13 1549 97.8 08/13 1353 78 18 128/74 99 Room Air 08/13 1208 62 18 169/101 99 Room Air 08/13 1115 66 18 159/105 99 Room Air Intake & Output 08/14 1600 08/14 0800 03 0000 Intake Total 200 230 Output Total Balance 200 230 Intake, Oral 200 230 Patient 188 lb Weight Physical Exam: PHYSICAL EXAMINATION: nl = normal NT or blank = not tested GENERAL Appearance: nl Head: nl Eyes: nl ENT: nl Neck: nl Carotids: nl Lungs: nl Heart: nl Extremities: nl Spine: nl NEUROLOGIC MENTAL STATUS Level of consciousness: nl Orientation: nl Attention / Concentration: nl Memory: nl Fund of Knowledge: nl Speech / Language: nl NEUROLOGIC CRANIAL NERVES I: Olfaction: NT II: Optic nerves: nl Visual jacome: nl III: Pupils: nl Levator palpebrae: nl III, IV, : Ocular alignment: nl Extraocular motility: nl Pursuits/ saccades: nl V: Facial sensation: Decreased in a patch laterally just below the lower lip extending to the midline chin region (patient states long-standing following dental work) [place]/Pterygoids: nl VII: Facial Motor: nl VIII: Hearing (finger rub): nl IX, X: Uvula and palate: nl XI: SCM, Upper trap.: nl XII: Tongue: nl MOTOR / NEUROMUSCULAR Bulk: nl Tone: nl Strength: nl Rapid alternating movements: nl Fine motor movements: nl Abnormal / involuntary movements: none CEREBELLAR / COORDINATION: intact SENSATION: intact DTR's symmetrically 1+ to 2+ PLANTARS: flexor GAIT: Not tested Last 48 Hours of Lab Results: Laboratory Tests 08/13 08/13 08/13 2200 1652 1251 Chemistry Sodium (137 - 145 mmol/L) 140 Potassium (3.5 - 5.1 mmol/L) 3.9 Chloride (98 - 107 mmol/L) 103 Carbon Dioxide (22 - 30 mmol/L) 25 Anion Gap (5 - 16) 11 BUN (7 - 17 mg/dL) 12 Creatinine (0.5 - 1.0 mg/dL) 0.6 Estimated GFR (>60 ml/min) > 60 BUN/Creatinine Ratio (7 - 25 %) 20.0 Glucose (65 - 99 mg/dL) 95 Calcium (8.4 - 10.2 mg/dL) 9.7 Total Bilirubin (0.2 - 1.3 mg/dL) 0.3 AST (14 - 36 U/L) 21 ALT (9 - 52 U/L) 26 Alkaline Phosphatase (<127 U/L) 57 Troponin I (< 0.11 ng/ml) < 0.01 < 0.01 < 0.01 Total Protein (6.3 - 8.2 g/dL) 6.7 Albumin (3.5 - 5.0 g/dL) 4.2 Globulin (1.9 - 4.2 gm/dL) 2.5 Albumin/Globulin Ratio (1.1 - 2.2 %) 1.7 Triglycerides (<150 mg/dL) 179 H Cholesterol (<200 MG/DL) 199 LDL Cholesterol, Calc (65 - 129 mg/dL) 116 HDL Cholesterol (40 - 60 mg/dL) 48 Cholesterol/HDL Ratio (0.00 - 4.23 %) 4 TSH &T3 &Free T4 Intrp (0.270 - 4.20 uIU/mL) 1.160 Coagulation PT (9.4 - 12.5 SEC) 10.2 INR (0.90 - 1.19) 0.97 APTT (25 - 37 SEC) 30 Hematology CBC w Diff NO MAN DIFF REQ WBC (4.8 - 10.8 /CUMM) 7.2 RBC (4.20 - 5.40 /CUMM) 3.97 L Hgb (12.0 - 16.0 G/DL) 13.0 Hct (37 - 47 %) 37.7 MCV (81.0 - 99.0 FL) 94.8 MCH (27.0 - 31.0 PG) 32.6 H MCHC (33.0 - 37.0 G/DL) 34.4 RDW (11.5 - 14.5 %) 13.0 Plt Count (130 - 400 /CUMM) 223 MPV (7.4 - 10.4 FL) 8.6 Gran % (42.2 - 75.2 %) 74.6 Lymphocytes % (20.5 - 51.1 %) 15.8 L Monocytes % (1.7 - 9.3 %) 8.2 Eosinophils % (0 - 5 %) 1.1 Basophils % (0.0 - 2.0 %) 0.3 Absolute Granulocytes (1.4 - 6.5 /CUMM) 5.4 Absolute Lymphocytes (1.2 - 3.4 /CUMM) 1.1 L Absolute Monocytes (0.10 - 0.60 /CUMM) 0.6 Absolute Eosinophils (0.0 - 0.7 /CUMM) 0.1 Absolute Basophils (0.0 - 0.2 /CUMM) 0 Toxicology Serum Alcohol (<10 MG/DL) < 10.0 08/13 1210 Toxicology Urine Opiates Screen (>2000 NG/ML) < 100.00 Methadone Screen (>300 NG/ML) < 40 Barbiturate Screen (>200 NG/ML) < 60 Ur Phencyclidine Scrn (>25 NG/ML) < 6.00 Amphetamines Screen (>1000 NG/ML) < 100 U Benzodiazepines Scrn (>200 NG/ML) < 85 Urine Cocaine Screen (>300 NG/ML) < 50 Urine Cannabis Screen (>50 NG/ML) < 5.00 Urines Urine Test NEGATIVE Imaging/Other Studies: EXAMINATION: US DUPLEX CAROTID AND VERTEBRAL CLINICAL INFORMATION: Numbness entire left side. Evaluate for carotid obstruction. COMPARISON: None TECHNIQUE: Real-time ultrasound and Doppler techniques (integrating B-mode 2D vascular images, Doppler spectral analysis and color flow Doppler imaging) were utilized to interrogate the extracranial carotid and vertebral arteries bilaterally. The degree of stenosis determined by criteria similar to NASCET. FINDINGS: There is normal antegrade flow seen in both carotid and vertebral arteries. No atherosclerotic soft or hard plaque seen in either carotid artery. On the right peak systolic/end diastolic velocity distal CCA measures 100/29 cm/second. Peak systolic/end diastolic velocity proximal ICA measures 63/19 cm/second. There is no significant stenosis. On the left peak systolic/end-diastolic velocity distal CCA measures 91/30 cm/end. Peak systolic/end diastolic velocity left proximal ICA measures 11 6/47 cm/second. There is no significant stenosis. IMPRESSION: No hemodynamically significant stenosis in either carotid artery . Normal antegrade flow seen in both vertebral arteries. DICTATED BY: Carola CASAREZ,Nicolás DATE/TIME DICTATED:08/13/171942 LICENSED PROSTHETIST:CLARITZA DATE/TIME TRANSCRIBED:08/13/171942 EXAM TYPE: CAT - CT HEAD WO IV CONTRAST EXAMINATION: CT HEAD WITHOUT CONTRAST CLINICAL INFORMATION: Sudden onset of left-sided weakness. COMPARISON: None TECHNIQUE: Contiguous axial imaging was performed from the skull base to vertex without intravenous administration of contrast. DLP: 615 mGy-cm FINDINGS: There is no evidence of acute intracranial hemorrhage or territorial infarction. No abnormal mass effect or midline shift is seen. Vang to white matter differentiation is well preserved. No extra-axial fluid collections are identified. The ventricles are normal in size. There is no abnormal attenuation within the brain parenchyma. The osseous structures and soft tissues are normal. The mastoid air cells and visualized portions of the paranasal sinuses are well aerated. IMPRESSION: No acute intracranial pathology. DICTATED BY: Sandra Escalante MD DATE/TIME DICTATED:08/13/171242 LICENSED PROSTHETIST:CLARITZA DATE/TIME TRANSCRIBED:08/13/171242 CONFIDENTIAL, DO NOT COPY WITHOUT APPROPRIATE AUTHORIZATION. CTA abdomen and chest negative Assessment/Plan Assessment: Possible right hemispheric TIA versus complicated migraine Stroke risk factors include smoking and family history, both maternal and paternal sides There is also a family history of migraine headaches in her mother and her maternal aunt Recommendations: Aspirin 81 mg daily Brain MRI Echocardiogram Cardiac telemetry Statin Trial of Inderal both for blood pressure management and for migraine headache prophylaxis When necessary Excedrin or Fioricet for headache Avoid triptans for now given her strokelike presentation Office follow-up after discharge Consult Acknowledgment - Thank you for your consult request.
--- NOTE | 2017-08-14 10:53 | Patient Discharge Instructions ---
Discharge Instructions General Discharge Information You were seen/treated for: CHEST PAIN Special Instructions: 1- PLEASE FOLLOW UP WITH YOUR PCP IN 1 WEEK OF DC 2-PLEASE FOLLOW UP WITH YOUR NEUROLOGIST IN 1 WK OF DC Diet Continue normal diet: Yes Acute Coronary Syndrome Inclusion Criteria At DC or during hospital stay patient has or had the following: ACS DIAGNOSIS No Discharge Core Measures Meds if any: Prescribed or Continued at Discharge Meds if any: NOT Prescribed or Continued at Discharge Congestive Heart Failure Inclusion Criteria At DC or during hospital stay patient has or had the following: CHF DIAGNOSIS No Discharge Core Measures Meds if any: Prescribed or Continued at Discharge Meds if any: NOT Prescribed or Continued at Discharge Cerebrovascular accident Inclusion Criteria At DC or during hospital stay patient has or had the following: CVA/TIA Diagnosis No Discharge Core Measures Meds if any: Prescribed or Continued at Discharge Meds if any: NOT Prescribed or Continued at Discharge Venous thromboembolism Inclusion Criteria VTE Diagnosis No VTE Type NONE VTE Confirmed by (Test) NONE Discharge Core Measures - Per Current guidelines, there needs to be overlap - treatment for the first 5 days of Warfarin therapy. - If discharged on Warfarin prior to 5 days of - overlap therapy, the patient will need to be - assessed for post discharge needs including - *Post discharge parental anticoagulation - *Warfarin and/or parental anticoagulation education - *Follow up date to check INR post discharge At least 5 days overlap therapy as Inpatient No Meds if any: Prescribed or Continued at Discharge Note: Overlap Therapy is Warfarin and Anticoagulant Meds if any: NOT Prescribed or Continued at Discharge
--- NOTE | 2017-08-14 11:56 | Cons- Psychiatry ---
Stefan Stubbs 08/14/17 1126: Psychiatric Consult Date of Consult: 08/14/17 Reason for Consult: Depression History of Present Illness: The patient is a 42 yo single female with a history of anxiety and migraines presenting with generalized weakness, dizziness, and chest pain and admitted for r/o of stroke and TX. Psych: The patient reports anxiety but no depression. Patient takes Lexapro for her anxiety and it was prescribed by her PCP, Dr. Zarco in [place], [place]. It helps significantly for her anxiety. Patient gets worried easily and the Lexapro helps her calm down. Patient denies hopelessness, helplessness, or guilt. Patient denies suicidal ideations, history of suicide attempts, homicidal ideations, auditory/visual hallucinations, delusions, or paranoia. [facility] and therapy there for anxiety was offered to the patient, but she declined. Patient smokes cigarettes, half a pack a day since teens. But she has quit 2 to 3 times before, but has always relapsed. She has tried Chantix and nicotine patches with her primary care physician. Patient was offered care at [facility] for smoking cessation, but patient declined. Only significant family history is biological father had depression and was abusing pills. But patient has not seen him for a long time. There was no family history of suicide attempts. Allergies: Coded Allergies: hydromorphone (From DILAUDID) (Mild, ITCHY RASH 08/13/17) Current Medications: Current Medications Sig/Shivam Start time Last Medication Dose Stop Time Status Admin Acetaminophen 650 MG Q4P PRN 08/13 1845 AC 08/14 (Tylenol) 0821 Aspirin 81 MG DAILY 08/14 1000 AC 08/14 (Aspirin) 0821 Escitalopram Oxalate 20 MG 0800 08/14 0845 AC 08/14 (Lexapro) 0925 Melatonin 10 MG AT BEDTIME 08/13 2200 AC 08/13 (Melatonin) 2116 Non-Formulary 0 SEE ADMIN CRITERIA 08/14 0945 CAN Medication (NON FORMULARY) Past History Past Medical History Neurological: NONE, migraine EENT: NONE Cardiovascular: NONE Respiratory: NONE Gastrointestinal: NONE Hepatic: NONE Renal: NONE Musculoskeletal: NONE Psychiatric: anxiety Endocrine: NONE Blood Disorders: NONE Cancer(s): NONE HAM SAWYER/Reproductive: NONE Past Surgical History Surgical History: non-contributory Psychosocial History Strengths/Capabilities: Good social support from boyfriend, sister, and mother. Physical Limitations (Interventions): None Psychiatric Treatment History Psych Treatment Psychiatric Treatment No Substance Use/Abuse History Drug Use/Abuse 1 Substances Used/Abused Yes Substance Used/Abused Nicotine First Use Teens Last Used Current user How much used/taken Half a pack How often Daily For how long 20 to 30 years Route of use Smoking Drug Use/Abuse 2 Substances Used/Abused Yes Substance Used/Abused Alcohol First Use Late teens to early 20s Last Used New Year's How much used/taken 1 to 2 drinks How often Holidays/special occasions Route of use PO Substance Abuse Treatment Substance Abuse Treatment Past Substance Abuse TX Yes Inpatient Treatment No Outpatient Treatment Yes Location of Treatment Outpatient Primary Care in [place], [place] Reason for Treatment Smoking cessation Response to Treatment Patient has tried Chantix and nicotine patches for smoking cessation. Patient has quit 2 to 3 times before, but still a current user. Assessment/Plan Mental Status Orientation: Person, Place, Situation Affect: WNL Speech: Normal Neuro-vegetative: WNL Mental Status Exam: Patient was lying in bed in hospital attire with boyfriend and mother in the room. Patient could not hear well and so I had to speak loudly and closely during the interview. Patient was cooperative and answered all questions. Her speech was normal in rate and volume. She maintained good eye contact. Her thought process was linear and goal-directed. She denies suicidal ideations, homicidal ideations, delusions, or paranoia. She denies auditory/visual hallucinations. Her mood is "better than before". Her affect is full and congruent. Her insight and judgment were good. She is alert and oriented to person, place, situation, and time. Lab Results: Laboratory Tests 08/13 08/13 08/13 2200 1652 1251 Chemistry Sodium (137 - 145 mmol/L) 140 Potassium (3.5 - 5.1 mmol/L) 3.9 Chloride (98 - 107 mmol/L) 103 Carbon Dioxide (22 - 30 mmol/L) 25 Anion Gap (5 - 16) 11 BUN (7 - 17 mg/dL) 12 Creatinine (0.5 - 1.0 mg/dL) 0.6 Estimated GFR (>60 ml/min) > 60 BUN/Creatinine Ratio (7 - 25 %) 20.0 Glucose (65 - 99 mg/dL) 95 Calcium (8.4 - 10.2 mg/dL) 9.7 Total Bilirubin (0.2 - 1.3 mg/dL) 0.3 AST (14 - 36 U/L) 21 ALT (9 - 52 U/L) 26 Alkaline Phosphatase (<127 U/L) 57 Troponin I (< 0.11 ng/ml) < 0.01 < 0.01 < 0.01 Total Protein (6.3 - 8.2 g/dL) 6.7 Albumin (3.5 - 5.0 g/dL) 4.2 Globulin (1.9 - 4.2 gm/dL) 2.5 Albumin/Globulin Ratio (1.1 - 2.2 %) 1.7 Triglycerides (<150 mg/dL) 179 H Cholesterol (<200 MG/DL) 199 LDL Cholesterol, Calc (65 - 129 mg/dL) 116 HDL Cholesterol (40 - 60 mg/dL) 48 Cholesterol/HDL Ratio (0.00 - 4.23 %) 4 TSH &T3 &Free T4 Intrp (0.270 - 4.20 uIU/mL) 1.160 Coagulation PT (9.4 - 12.5 SEC) 10.2 INR (0.90 - 1.19) 0.97 APTT (25 - 37 SEC) 30 Hematology CBC w Diff NO MAN DIFF REQ WBC (4.8 - 10.8 /CUMM) 7.2 RBC (4.20 - 5.40 /CUMM) 3.97 L Hgb (12.0 - 16.0 G/DL) 13.0 Hct (37 - 47 %) 37.7 MCV (81.0 - 99.0 FL) 94.8 MCH (27.0 - 31.0 PG) 32.6 H MCHC (33.0 - 37.0 G/DL) 34.4 RDW (11.5 - 14.5 %) 13.0 Plt Count (130 - 400 /CUMM) 223 MPV (7.4 - 10.4 FL) 8.6 Gran % (42.2 - 75.2 %) 74.6 Lymphocytes % (20.5 - 51.1 %) 15.8 L Monocytes % (1.7 - 9.3 %) 8.2 Eosinophils % (0 - 5 %) 1.1 Basophils % (0.0 - 2.0 %) 0.3 Absolute Granulocytes (1.4 - 6.5 /CUMM) 5.4 Absolute Lymphocytes (1.2 - 3.4 /CUMM) 1.1 L Absolute Monocytes (0.10 - 0.60 /CUMM) 0.6 Absolute Eosinophils (0.0 - 0.7 /CUMM) 0.1 Absolute Basophils (0.0 - 0.2 /CUMM) 0 Toxicology Serum Alcohol (<10 MG/DL) < 10.0 08/13 1210 Toxicology Urine Opiates Screen (>2000 NG/ML) < 100.00 Methadone Screen (>300 NG/ML) < 40 Barbiturate Screen (>200 NG/ML) < 60 Ur Phencyclidine Scrn (>25 NG/ML) < 6.00 Amphetamines Screen (>1000 NG/ML) < 100 U Benzodiazepines Scrn (>200 NG/ML) < 85 Urine Cocaine Screen (>300 NG/ML) < 50 Urine Cannabis Screen (>50 NG/ML) < 5.00 Urines Urine Test NEGATIVE Diffential Diagnosis: Anxiety disorder, unspecified Impression: Patient is a 42 yo single female with a history of anxiety and migraines presenting with generalized weakness, dizziness, and chest pain and admitted for r/o stroke and TX. There is no concern for depression. Patient denies suicidal ideations, history of suicide attempts, homicidal ideations, auditory/visual hallucinations, delusions, and paranoia. Patient is alert and oriented x 4. Patient is prescribed Lexapro by PCP, Dr. Zarco, for anxiety, which helps her calm down. Provisional Treatment Plan: 1. Continue medications as prescribed. No psychiatric medications/interventions indicated at this time. 2. Patient offered [facility] services for anxiety and smoking cessation, but patient declined. 3. Patient will follow up with PCP, Dr. Zarco in [place], [place], will see her for management of her anxiety. Thank you for this consult. Marcos Welsh APRN 08/14/17 4379: Assessment/Plan Provisional Treatment Plan: I agree with this note, including the evaluation and plan.
[2017-08-14 14:16] VITALS: BP 122/88
[2017-08-14 22:01] VITALS: BP 124/80
[2017-08-15 06:44] VITALS: BP 120/70
--- NOTE | 2017-08-15 07:05 | PN-Observation ---
Juancarlos CASAREZ,Ghazal 08/15/17 0704: Observation Note Observation Note _ I have personally examined KENTRELL STILL. her disposition is uncertain at this time. Before a determination can be made, she requires continued observation for the following reasons [chest pain]. Assessment/Plan Medical Assessment: 42 years old female with past medical history of anxiety, migraine presents to the ED complaining of generalized weakness and dizziness which started this morning when the patient was at work. Patient reports that her pain started with pain in her right ear which was associated with ringing and difficulty hearing after which the patient noticed that she feels dizzy and was trying to hold to the wall not to fall, the patient also noticed having chest tightness and that she cannot catch her breath it was associated with tingling and numbness in her left arm. ED course: Vital signs: Blood pressure 159/105, pulse 66, respiratory rate 18, pulse ox 99 on room air Labs on admission: C BC and BEP was within normal limits Chest x-ray and head CT were normal Abdominal CT showed only small liver cyst Problem list: Migraine Diziness Chest pain Anxiety Weakness Plan Observe on telemetry MRI brain to rule out organic brain disease Neuro check every 2 Fall precaution Zofran when necessary for nausea PT evaluation Social work consult Start Inderal 10 mg twice a day for both headache and hypertension Start Atorvastatin 10 mg daily Close monitoring of vital signs exedrin PRN for migraine Tylenol 650 mg when necessary for pain Was cleared from cardiology standpoint to be discharged for outpatient stress test and echo Was seen by psychiatry and was offered outpatient follow-up for anxiety but she refused Patient is a stable to go home today Full code DVT prophylaxis with heparin/Alps Heart healthy diet Problem List: 1. Weakness 2. Chest pain Qualifiers Chest pain type: unspecified Qualified Code: R07.9 - Chest pain, unspecified Subjective Follow-up For: Migraine Diziness Chest pain Anxiety Weakness Tele-Events Since Last Visit: No evidence, normal sinus rhythm, 68 Subjective: Patient is seen and examined at bedside, she complains of mild migraine headache /was given Excedrin and improved, she denies any weakness, chest tightness, shortness of breath, fever, or any other symptoms Review of Systems Constitutional: Reports: see HPI. Objective Last 24 Hrs of Vital Signs/I&O Vital Signs Date Time Temp Pulse Resp B/P B/P Pulse O2 O2 Flow FiO2 Mean Ox Delivery Rate 08/15 0914 126/80 08/15 0910 68 126/80 08/15 0800 Room Air 08/15 0644 98.9 68 20 120/70 98 Room Air 08/14 2201 98.5 69 18 124/80 96 08/14 2028 76 120/76 08/14 1431 69 122/88 08/14 1416 98.2 69 20 122/88 96 Room Air Intake & Output 08/15 1600 08/15 0800 08/15 0000 Intake Total 360 840 Output Total Balance 360 840 Intake, Oral 360 840 Patient 197 lb Weight Weight Bed scale Measurement Method Physical Exam General Appearance: Alert, Oriented X3, Cooperative, No Acute Distress HEENT: Atraumatic, PERRLA, EOMI, Mucous Membr. moist/pink Neck: Supple, No JVD Cardiovascular: Normal S1, Normal S2, No Murmurs Lungs: Clear to Auscultation Abdomen: Normal Bowel Sounds, Soft, No Tenderness Neurological: Normal Speech, Strength at 5/5 X4 Ext, Normal Tone Extremities: No Clubbing, No Cyanosis, No Edema Tyree Warner MD 08/15/174: Observation Note Observation Note _ The patient was seen and discussed with house staff and case management. MRI brain done today is negative and thus may discharge to home. Neurologic symptoms resolved completely.
[2017-08-15] MEDS ORDERED: PROPRANOLOL HCL10 M1 PO (08:32)
[2017-08-15] MEDS ORDERED: ATORVASTATIN CA10 M1 PO (08:32)
[2017-08-15 09:14] VITALS: BP 126/80
--- NOTE | 2017-08-15 11:22 | PN- Cardiology ---
Subjective Subjective: The patient is awake, alert No events were noted on telemetry The events of the last 24 hours as well as telemetry were reviewed. Review of Systems: The review of systems is negative for chest pains, palpitations nor lightheadedness. The remainder of the 14 point review of systems is noncontributory with the exception of above. Objective Vital Signs and I&Os Vital Signs Date Time Temp Pulse Resp B/P B/P Pulse O2 O2 Flow FiO2 Mean Ox Delivery Rate 08/15 0914 126/80 08/15 0910 68 126/80 08/15 0800 Room Air 08/15 0644 98.9 68 20 120/70 98 Room Air 08/14 2201 98.5 69 18 124/80 96 08/14 2028 76 120/76 08/14 1431 69 122/88 08/14 1416 98.2 69 20 122/88 96 Room Air Intake & Output 08/15 1600 08/15 0800 08/15 0000 08/14 1600 08/14 0800 08/14 0000 Intake Total 620 192 0748 200 230 Output Total Balance 681 956 5100 200 230 Intake, IV 10 Intake, Oral 878 190 6901 200 230 Patient 197 lb 188 lb Weight Weight Bed scale Measurement Method Physical Exam: General: Nontoxic, no apparent distress. HEENT: Sclera and conjunctiva within normal limits, without xanthelasmas. Neck: Carotids 2+ without bruits. Respiratory: Clear to auscultation, air movement is good, without accessory respiratory muscle use. Heart: Regular rate and rhythm, without murmurs, without JVD. Abdomen: Soft, nontender, no masses, normoactive bowel sounds. Extremities: Without clubbing, cyanosis, without edema. Neuro: Nonfocal exam, strength, 5 out of 5 Skin: Within normal limits without lesions. Psych: Mood and affect: Normal Current Medications: Current Medications Sig/Shivam Start time Last Medication Dose Route Stop Time Status Admin Acetaminophen 650 MG Q4P PRN 08/13 1845 DCD 08/15 PO 0912 Acetaminophen/ 1 CAP DAILY NEEDED PRN 08/14 1545 DCD Aspirin/Caffeine PO Aspirin 81 MG DAILY 08/14 1000 DCD 08/15 PO 0908 Atorvastatin Calcium 10 MG 1700 08/14 1700 DCD 08/14 PO 1635 Docusate Sodium 100 MG DAILY NEEDED PRN 08/14 1700 DCD 08/14 PO 1701 Escitalopram Oxalate 20 MG 0800 08/14 0845 DCD 08/15 PO 0908 Melatonin 10 MG AT BEDTIME 08/13 2199 DCD 08/14 PO 2026 Patient Medication 1 ED ONE ONE 08/14 1515 DC Teaching ED 08/14 1516 Propranolol HCl 10 MG BID 08/14 1315 KYD 08/15 PO 0910 Results Last 48 Hrs of Labs/Mics: Laboratory Tests 08/13/17 2200: Troponin I < 0.01 08/13/17 1652: Troponin I < 0.01 08/13/17 1251: Anion Gap 11, Estimated GFR > 60, BUN/Creatinine Ratio 20.0, Glucose 95, Calcium 9.7, Total Bilirubin 0.3, AST 21, ALT 26, Alkaline Phosphatase 57, Troponin I < 0.01, Total Protein 6.7, Albumin 4.2, Globulin 2.5, Albumin/Globulin Ratio 1.7, Triglycerides 179 H, Cholesterol 199, LDL Cholesterol, Calc 116, HDL Cholesterol 48, Cholesterol/HDL Ratio 4, TSH &T3 &Free T4 Intrp 1.160, PT 10.2, INR 0.97, APTT 30, CBC w Diff NO MAN DIFF REQ, RBC 3.97 L, MCV 94.8, MCH 32.6 H, MCHC 34.4, RDW 13.0, MPV 8.6, Gran % 74.6, Lymphocytes % 15.8 L, Monocytes % 8.2, Eosinophils % 1.1, Basophils % 0.3, Absolute Granulocytes 5.4, Absolute Lymphocytes 1.1 L, Absolute Monocytes 0.6, Absolute Eosinophils 0.1, Absolute Basophils 0, Serum Alcohol < 10.0 08/13/17 1210: Urine Opiates Screen < 100.00, Methadone Screen < 40, Barbiturate Screen < 60, Ur Phencyclidine Scrn < 6.00, Amphetamines Screen < 100, U Benzodiazepines Scrn < 85, Urine Cocaine Screen < 50, Urine Cannabis Screen < 5.00, Urine Test NEGATIVE Microbiology 08/13 1545 NASOPHARYN: Influenza Virus A & B Rapid Smear - COMP Assessment/Plan Assessment/Plan In summary this 42-year-old female who smokes cigarettes was admitted with atypical constellation of discomfort including headache dizziness chest discomfort. Serial electrocardiograms are normal. Troponins are negative. Extensive workup included carotid ultrasound, CT of the chest and abdomen, CT of the head. Which were all normal. She will be discharged home today following review of her MRI scan. Further follow-up excessively standpoint may be performed as an outpatient. Continue telemetry? No
--- NOTE | 2017-08-15 13:48 | MRI REPORT ---
EXAMINATION: MR BRAIN WITHOUT CONTRAST CLINICAL INFORMATION: Weakness in body. Stroke. COMPARISON: Head CT 08/13/2017. TECHNIQUE: Multiplanar, multisequence imaging of the brain was performed without intravenous contrast. \H\ \N\FINDINGS: There is no acute infarct, hemorrhage, or mass lesion. There is no extra-axial collection. The ventricles, sulci, and basilar cisterns are normal in size and configuration. There are a few scattered foci of T2 hyperintensity in the bilateral cerebral white matter which are nonspecific. The flow voids of the major intracranial arteries appear intact. There is mild paranasal sinus mucosal thickening and mucosal retention cysts. There is trace fluid in the right mastoid tip. There is non-expansile fluid in the pneumatized left petrous apex. IMPRESSION: No acute infarct, mass lesion, intracranial hemorrhage, or evidence of hydrocephalus. This critical result was discussed with Dr. Tyree Warner on 08/15/2017 10:51 AM, and it was ascertained that the content and urgency of the report was understood at the time of direct communication.
== END 2017-08-15 11:00 ==
LOC: ERH 11:06 → ERHI 16:48 → 1NO 16:48 → ENRESERV 17:34 → ENTRNSPT 19:46 → EDTRNSPTSTS 20:07 → EDTRNSPT 20:07 → 1NO 20:25 → CMPTRNSPT 20:31 → ENPENDDIS 08-15 10:28 → 1NO 08-15 11:00
PROVIDERS: Physician Assistant
DX: R07.9 Chest pain, unspecified (principal); F17.200 Nicotine dependence, unspecified, uncomplicated; F41.9 Anxiety disorder, unspecified; G43.909 Migraine, unspecified, not intractable, without status migrainosus; R42 Dizziness and giddiness; R53.1 Weakness; Z79.82 Long term (current) use of aspirin
CPT/HCPCS: 70551; 86317; 87798; 36415; 71045; 74174; 80307; 81025; 87804; 87804-59; 93005; 93010; 96374; 99233; G0378; G0480; J1885; J2550; J3490